=== PATIENT | female | born 1950 | race Caucasian/White ===

== ENCOUNTER 2021-10-27 13:25 | Outpatient (CLI) | payer OTHER, SELFPAY ==
[2021-10-27 19:38] LABS: Alanine Aminotransferase 36 U/L (6-35); Albumin Level 3.9 g/dL (3.5-5.1); Alkaline Phosphatase 85 U/L (38-126); Anion Gap 10 mmol/L (8-16); Aspartate Amino Transferase 43 U/L (14-36); Bilirubin,Total 0.8 mg/dL (0.2-1.3); Blood Urea Nitrogen 16 mg/dL (7-17); Calcium 9.6 mg/dL (8.4-10.2); Carbon Dioxide 30 mmol/L (22-30); Chloride 99 mmol/L (98-107); Cholesterol 190 mg/dL (0-200); Estimated Glomerular Filt Rate > 60; Glucose 188 mg/dL (65-110); HDL Direct 24 mg/dL; Potassium 4.2 mmol/L (3.4-5.0); Sodium 139 mmol/L (137-145); Triglycerides 501 mg/dL (<150)
[2021-10-27 19:49] LABS: LDL Cholesterol Direct 107 mg/dL
[2021-10-27 19:51] LABS: Basophils Absolute Auto 0.1 K/mm3 (0.0-0.1); Basophils Percent Auto 0.8 % (0.2-1.2); Eosinophils Absolute Auto 0.4 K/mm3 (0-0.3); Eosinophils Percent Auto 4.1 % (0-4.4); Hematocrit 48.3 % (37.0-47.0); Hemoglobin 16.3 g/dL (12.0-15.0); Immature Granulocyte Absolute 0.03 K/mm3 (0.00-0.031); Immature Granulocyte Percent A 0.4 % (0-0.5); Lymphocytes Percent Auto 23.4 % (18.3-44.2); Mean Corpuscular HGB Conc 33.7 g/dl (32-36); Mean Corpuscular Hemoglobin 30.9 pg (26-34); Mean Corpuscular Volume 91.5 fl (80-100); Mean Platelet Volume 9.7 fl (7.4-10.4); Monocytes Absolute Auto 0.8 K/mm3 (0.1-0.6); Monocytes Percent Auto 9.1 % (2.6-8.5); Neutrophils Absolute Auto 5.3 K/mm3 (1.3-6.7); Neutrophils Percent Auto 62.2 % (45.5-73.1); Platelet Count Result 282 k/mm3 (150-375); Red Blood Count 5.28 M/mm3 (4.2-5.4); Red Cell Distribution Width 13.2 % (11.5-14.5); White Blood Count 8.6 K/mm3 (4.5-10.0)
[2021-10-27 20:41] LABS: Creatinine Urine 67.1 mg/dL
[2021-10-27 20:43] LABS: MALB Creatinine Ratio 55.3 mg/g (0-30); Microalbumin Urine Random 37.1 mg/L (0-16.7)
[2021-10-27 21:07] LABS: Hemoglobin A1C 7.3 % (<5.7)
== END 2021-10-27 13:26 | disposition home or self-care (01) ==
LOC: ANHGOSHLAB 13:29
PROVIDERS: PCP Family Medicine; Visit Provider Family Medicine
DX: E11.9 Type 2 diabetes mellitus without complications (principal); E78.2 Mixed hyperlipidemia
CPT/HCPCS: 36415; 80053; 80061; 82043; 83036; 84443; 85025

== ENCOUNTER 2022-04-24 08:06 | Outpatient (CLI) | payer OTHER, SELFPAY ==
[2022-04-24 20:09] LABS: Alanine Aminotransferase 23 U/L (6-35); Albumin Level 3.9 g/dL (3.5-5.1); Alkaline Phosphatase 67 U/L (38-126); Anion Gap 5 mmol/L (8-16); Aspartate Amino Transferase 33 U/L (14-36); Bilirubin,Total 1.1 mg/dL (0.2-1.3); Blood Urea Nitrogen 20 mg/dL (7-17); Calcium 8.8 mg/dL (8.4-10.2); Carbon Dioxide 31 mmol/L (22-30); Chloride 102 mmol/L (98-107); Cholesterol 140 mg/dL (0-200); Estimated Glomerular Filt Rate > 60; Glucose 65 mg/dL (65-110); HDL Direct 32 mg/dL; Potassium 4.1 mmol/L (3.4-5.0); Sodium 138 mmol/L (137-145); Triglycerides 167 mg/dL (<150)
[2022-04-24 20:18] LABS: Creatinine Urine 76.5 mg/dL
[2022-04-24 20:21] LABS: LDL Cholesterol Direct 75 mg/dL
[2022-04-24 20:27] LABS: MALB Creatinine Ratio 11.5 mg/g (0-30); Microalbumin Urine Random 8.8 mg/L (0-16.7)
[2022-04-24 20:44] LABS: Hemoglobin A1C 5.3 % (<5.7)
== END 2022-04-24 08:07 | disposition home or self-care (01) ==
LOC: ANHGOSHLAB 08:07
PROVIDERS: PCP Family Medicine; Visit Provider Family Medicine
DX: E11.9 Type 2 diabetes mellitus without complications (principal)
CPT/HCPCS: 36415; 80053; 80061; 82043; 82607; 83036

== ENCOUNTER 2022-11-24 08:07 | Outpatient (CLI) | payer OTHER, SELFPAY ==
[2022-11-24 19:55] LABS: Alanine Aminotransferase 26 U/L (6-35); Albumin Level 3.7 g/dL (3.5-5.1); Alkaline Phosphatase 52 U/L (38-126); Anion Gap 6 mmol/L (8-16); Aspartate Amino Transferase 28 U/L (14-36); Bilirubin,Total 1.2 mg/dL (0.2-1.3); Blood Urea Nitrogen 12 mg/dL (7-17); Carbon Dioxide 32 mmol/L (22-30); Chloride 101 mmol/L (98-107); Cholesterol 138 mg/dL (0-200); Estimated Glomerular Filt Rate > 60; Glucose 100 mg/dL (65-110); HDL Direct 29 mg/dL; Sodium 139 mmol/L (137-145); Triglycerides 251 mg/dL (<150)
[2022-11-24 20:06] LABS: LDL Cholesterol Direct 72 mg/dL
[2022-11-24 20:27] LABS: Creatinine Urine 74.2 mg/dL
[2022-11-24 20:31] LABS: Hemoglobin A1C 5.9 % (<5.7)
[2022-11-24 20:57] LABS: Hepatitis C Virus Antibody Negative (Negative)
== END 2022-11-24 08:08 | disposition home or self-care (01) ==
LOC: ANHGOSHLAB 08:10
PROVIDERS: PCP Family Medicine; Visit Provider Family Medicine
DX: E11.9 Type 2 diabetes mellitus without complications (principal); Z11.59 Encounter for screening for other viral diseases
CPT/HCPCS: 36415; 80053; 80061; 82043; 82607; 83036; 86803

== ENCOUNTER 2023-07-13 08:14 | Outpatient (CLI) | payer OTHER, SELFPAY ==
[2023-07-13 14:15] LABS: Basophils Absolute Auto 0.1 K/mm3 (0.0-0.1); Basophils Percent Auto 0.6 % (0.2-1.2); Eosinophils Absolute Auto 0.3 K/mm3 (0-0.3); Eosinophils Percent Auto 3.9 % (0-4.4); Hematocrit 47.1 % (37.0-47.0); Hemoglobin 15.4 g/dL (12.0-15.0); Immature Granulocyte Absolute 0.04 K/mm3 (0.00-0.031); Immature Granulocyte Percent A 0.5 % (0-0.5); Lymphocytes Absolute Auto 1.71 K/mm3 (0.9-3.2); Mean Corpuscular HGB Conc 32.7 g/dl (32-36); Mean Corpuscular Hemoglobin 31.6 pg (26-34); Mean Corpuscular Volume 96.7 fl (80-100); Mean Platelet Volume 9.4 fl (7.4-10.4); Monocytes Absolute Auto 0.7 K/mm3 (0.1-0.6); Monocytes Percent Auto 8.3 % (2.6-8.5); Neutrophils Percent Auto 64.7 % (45.5-73.1); Platelet Count Result 272 k/mm3 (150-375); Red Blood Count 4.87 M/mm3 (4.2-5.4); Red Cell Distribution Width 12.9 % (11.5-14.5); White Blood Count 7.8 K/mm3 (4.5-10.0)
[2023-07-13 15:46] LABS: LDL Cholesterol Direct 83 mg/dL
[2023-07-13 15:54] LABS: Alanine Aminotransferase 21 U/L (6-35); Albumin Level 4.1 g/dL (3.5-5.1); Alkaline Phosphatase 59 U/L (38-126); Anion Gap 5 mmol/L (4-12); Aspartate Amino Transferase 47 U/L (14-36); Blood Urea Nitrogen 21 mg/dL (7-17); Calcium 9.5 mg/dL (8.4-10.2); Carbon Dioxide 31 mmol/L (22-30); Chloride 104 mmol/L (98-107); Cholesterol 147 mg/dL (0-200); Estimated Glomerular Filt Rate > 60; Glucose 89 mg/dL (65-110); HDL Direct 35 mg/dL; Potassium 4.5 mmol/L (3.4-5.0); Sodium 140 mmol/L (137-145); Triglycerides 238 mg/dL (<150)
[2023-07-13 16:28] LABS: Hemoglobin A1C 5.6 % (<5.7)
[2023-07-13 16:30] LABS: MALB Creatinine Ratio 10.3 mg/g (0-30); Microalbumin Urine Random 8.2 mg/L (0-16.7)
== END 2023-07-13 08:15 | disposition home or self-care (01) ==
LOC: ANHGOSHLAB 08:15
PROVIDERS: PCP Family Medicine; Visit Provider Family Medicine
DX: I10 Essential (primary) hypertension (principal); E78.2 Mixed hyperlipidemia; E66.9 Obesity, unspecified; E53.8 Deficiency of other specified B group vitamins; E11.9 Type 2 diabetes mellitus without complications; Z79.899 Other long term (current) drug therapy
CPT/HCPCS: 36415; 80053; 80061; 82043; 82607; 83036; 84443; 85025

== ENCOUNTER 2023-12-14 07:53 | Outpatient (CLI) | payer OTHER, SELFPAY ==
[2023-12-14 14:47] LABS: Alanine Aminotransferase 36 U/L (6-35); Albumin Level 3.9 g/dL (3.5-5.1); Alkaline Phosphatase 44 U/L (38-126); Anion Gap 10 mmol/L (4-12); Aspartate Amino Transferase 44 U/L (14-36); Bilirubin,Total 1.8 mg/dL (0.2-1.3); Blood Urea Nitrogen 31 mg/dL (7-17); Calcium 9.3 mg/dL (8.4-10.2); Carbon Dioxide 28 mmol/L (22-30); Chloride 100 mmol/L (98-107); Cholesterol 112 mg/dL (0-200); Estimated Glomerular Filt Rate > 60; Glucose 73 mg/dL (65-110); HDL Direct 34 mg/dL; Potassium 3.8 mmol/L (3.4-5.0); Sodium 138 mmol/L (137-145); Triglycerides 104 mg/dL (<150)
[2023-12-14 15:08] LABS: Microalbumin Urine Random 19.7 mg/L (0-16.7)
[2023-12-14 15:09] LABS: LDL Cholesterol Direct 48 mg/dL
[2023-12-14 15:12] LABS: Creatinine Urine 67.6 mg/dL; MALB Creatinine Ratio 29.1 mg/g (0-30)
[2023-12-14 16:21] LABS: Hemoglobin A1C 5.1 % (<5.7)
== END 2023-12-14 07:54 | disposition home or self-care (01) ==
LOC: ANHGOSHLAB 07:54
PROVIDERS: PCP Family Medicine; Visit Provider Family Medicine
DX: E11.40 Type 2 diabetes mellitus with diabetic neuropathy, unspecified (principal)
CPT/HCPCS: 36415; 80053; 80061; 82043; 82607; 83036; J1100; J2003; J2405; J2704

== ENCOUNTER 2024-05-23 07:54 | Outpatient (CLI) | payer OTHER, SELFPAY ==
--- OUTSIDE RECORDS SUMMARY | 2024-05-23 07:58 | XMS_ITS | Referral Summary ---
Author Organization [facility] Address [address] [place] [address] Care Team Providers Care Leather Production Machine Operator Name Role Phone Winnie Davey MD Primary Care Provider + Encounters Date Type Department Care Team Description 03/24/2024 8:30 AM KEYBOARD OPERATOR Office Visit [facility] [address] [place] [address] Yoselin Payan MD PhD Herpes zoster keratoconjunctivitis (Primary Dx) 03/13/2024 Telephone [facility] [address] [address] Shanda Akhtar from Last 3 Months Allergies Active Allergy Reactions Criticality Noted Date Comments Penicillins Rash Medium Medications metFORMIN XR (GLUCOPHAGE XR) 500 mg 24 hr tabletIndicatio ns:type 2 diabetes mellitus Take 2 tablets (1,000 mg total) by mouth 2 (two) times a day 3 Active telmisartan-hyd rochlorothiazid (MICARDIS HCT) 80-12.5 mg per tabletIndicatio ns:hypertension Take 1 tablet by mouth every morning 3 Active atorvastatin (LIPITOR) 10 mg tabletIndicatio ns:hyperlipidem ia Take 1 tablet (10 mg total) by mouth nightly 3 Active cholecalciferol , vitamin D3, (VITAMIN D3 ORAL) Take 1 capsule by mouth every morning Active cyanocobalamin (Vitamin B-12) 1,000 mcg tabletIndicatio ns:Prevention of Vitamin B12 Deficiency Take 1 tablet (1,000 mcg total) by mouth daily Active azithromycin (ZITHROMAX) 250 mg tablet TAKE 2 TABLETS BY MOUTH ON DAY 1, AND THEN TAKE 1 TABLET BY MOUTH ONCE A DAY ON DAY 2 THROUGH DAY 5 3 Active acyclovir (ZOVIRAX) 400 mg tablet Take 1 tablet (400 mg total) by mouth 3 (three) times a day 270 tablet 3 5 Active loteprednol (LOTEMAX) 0.5 % ophthalmic suspension Administer 1 drop into the right eye daily 15 mL 3 5 Active Active Problems Problem Noted Date Diagnosed Date Unspecified cataract 12/27/2022 Age-related nuclear cataract of both eyes 2018 Assessment & Plan (07/12/2018 3:09 PM CDT): Not visually significant, observe for now. Hx of HSV (herpes simplex virus) keratitis 07/12 Assessment & Plan (07/12/2018 3:11 PM CDT): Hx HSV keratitis OD with residual scar. Vision and corneas stable, IOP excellent Pt plans for annual diabetic DFE with optom closer to home. 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 Vision and corneas stable, IOP excellent However, there is an increase of stromal thinning and peripheral opacity Pt plans for annual diabetic DFE with optom closer to home. CPM: Lotemax Qd OD, Acyclovir 400 mg Qd-Bid po (take more for flareup) RTC 1 years, sooner prn Social History Tobacco Use Types Packs/Day Years Used Date Smoking Tobacco: Never Smokeless Tobacco: Never AUDIT-C Answer Date Recorded Q1: How often do you have a drink containing alcohol? Never 01/31/2023 Q2: How many drinks containi ng alcohol do you have on a typical day when you are drinking? Patient does not drink Q3: How often do you have si x or more drinks on one occasion? Never 01/31/2023 Personal Safety Answer Date Recorded Have you ever been in or are you currently in a harmful physical or emotional relationship or is someone making you feel afraid or unsafe? Denies 01/31/2023 Comments No Sex and Gender Information Value Date Recorded Sex Assigned at Not on file Legal Sex Female 2:45 AM KEYBOARD OPERATOR Gender Identity Not on file Sexual Orientation Not on file Last Filed Vital Signs Vital Sign Reading Time Taken Comments Blood Pressure 110/71 01/31/2023 4:15 PM KEYBOARD OPERATOR Pulse 67 01/31/2023 4:15 PM KEYBOARD OPERATOR Temperature 36.5 C (97.7 F) 01/31/2023 3:35 PM KEYBOARD OPERATOR Respiratory Rate 16 01/31/2023 4:15 PM KEYBOARD OPERATOR Oxygen Saturation 92% 01/31/2023 4:15 PM KEYBOARD OPERATOR Inhaled Oxygen Concentration - - Weight 79.4 kg (175 lb) 01/31/2023 1:20 PM KEYBOARD OPERATOR Height 152.4 cm (5') 01/31/2023 1:20 PM KEYBOARD OPERATOR Body Mass Index 34.18 01/31/2023 1:20 PM KEYBOARD OPERATOR Plan of Treatment Not on file Medical Devices Implanted Type Area Fire Control Assistant Device Identifier Shelf Expiration Date Model / Serial / Lot [employer] Lens Iol Tecnis Smplcty 1-Pc Clr [place] 23.0 Diopter [id number] - [id number] - [id number] Implanted:Qty: 1 on 01/31/2023 by Yoselin Payan MD PhD at [facility] Lens Right: Eye [employer] [id number] 09/29/2025 [id number] / 0 Insurance [facility] [id number] [facility] [id number] Care Teams Leather Production Machine Operator Relationship Specialty Start Date End Date Winnie Davey MD PCP - General Family Medicine 07/24/22
--- OUTSIDE RECORDS SUMMARY | 2024-05-23 07:58 | XMS_ITS | Continuity of Care Document ---
Author Organization [facility] Address [address] [facility] [address] [place] [address] Phone Care Team Providers Care Senior Applications Developer Name Role Phone Sachin Bear Unavailable Unavailable Procedures Procedure Date Office/outpatient Visit, Est Office/outpatient Visit, Est Office/outpatient Visit, Est Office/outpatient Visit, Est Office/outpatient Visit, Est Miscellaneus Eye Exam Established Pt Office/outpatient Visit, Est Office/outpatient Visit, Est Eye Exam & Treatment Office/outpatient Visit, Est Office/outpatient Visit, Est Office/outpatient Visit, Est Eye Exam, New Patient Advance Directives Directive Yes / No Effective Date File Name No Information Encounters Encounter Description Practice Location Reason(s) For Visit Diagnoses Date Provider Providers Copied on Encounter Office/outpat ient Visit, Est [facility], [address], [place], [place], [id number], [place] tel:[phone] [facility] No Information 0 Marianela Stephenson. [address] [facility] [address], [address], [place]. tel:[phone] Referring Provider: Itz Pinedo MD [place], [address] [place] [address], [address]. tel:[phone] Office/outpat ient Visit, [facility], [address] [place] [address] [address], [place], [place], [id number], [place] tel:[phone] [facility] No Information Mar-1 0-201 0 Krishnasamy Sachin. [address] [facility] [address], [place], [facility], [place]. tel:[phone] Referring Provider: Itz Cardenas, [address] [place] [address], [facility]. tel:[phone] Office/outpat ient Visit, [facility], [address] [place] [address] [address], [place], [place], [id number], [place] tel:[phone] [facility] No Information Mar-0 5-201 0 Krishnasamy Sachin. [address] [facility] [address], [place], [facility], [place]. tel:[phone] Referring Provider: Itz Cardenas, [address] [place], [place], [facility]. tel:[phone] Office/outpat ient Visit, [facility], [address] [place] [address] [address], [place], [place], [id number], [place] tel:[phone] [facility] No Information Feb-1 2-201 0 Krishnasamy Sachin. [address] [facility] [address], [place], [facility], [place]. tel:[phone] Referring Provider: Itz Cardenas, [address] [place], [address]. tel:[phone] Office/outpat ient Visit, [facility], [address] [place] [address] [address], [place], [place], [id number], [place] tel:[phone] [facility] No Information Feb-0 5-201 0 Krishnasamy Sachin. [address] [facility] [address], [place], [place], [facility], . tel:[phone] Referring Provider: Itz Cardenas, [address] [place], [address]. tel:[phone] [facility] Eye [facility], [address], [place], [place], [id number], [place] tel:[phone] [facility] No Information -201 0 Jeter Gladys. [address], [place], [facility], [place]. tel:[phone] Referring Provider: Itz Cardenas, [address] [place], [address]. tel:[phone] [facility] Eye [facility], [address], [place], [place], [id number], [place] tel:[phone] [facility] No Information 0 Steffany Salasn. [address] [facility] [address], [place], [facility], [place]. tel:[phone] Referring Provider: Itz Cardenas, [address] [place], [address]. tel:[phone] Office/outpat ient Visit, Est [facility] Eye [facility], [address], [place], [place], [id number], [place] tel:[phone] [facility] No Information 2-201 0 Steffany Gladys. [address], [place], [facility], [place]. tel:[phone] Referring Provider: Itz Cardenas, [address] [place], [address]. tel:[phone] Office/outpat ient Visit, Est [facility] Eye [facility], [address], [place], [place], [id number], [place] tel:[phone] [facility] No Information 5-200 9 Jeter Gladys. [address], [place], [facility], . tel:[phone] Referring Provider: Itz Pinedo MD [place], [address] [place] [address], [facility]. tel:[phone] [facility] Eye [facility], [address] [place] [address] [address], [place], [place], [id number], tel:[phone] [facility] No Information 1-200 9 Jeter Gladys. [address], [place], [facility], [place]. tel:[phone] Referring Provider: Itz Pinedo MD [place], [address] [place] [address], [facility]. tel:[phone] Office/outpat ient Visit, [facility], [address], [place], [place], [id number], [place] tel:[phone] [facility] No Information 200 9 Jeter Gladys. [address], [place], [facility], [place]. tel:[phone] Referring Provider: Itz Pinedo MD [place], [address] [place] [address], [facility]. tel:[phone] Office/outpat ient Visit, [facility] Eye [facility], [address] [place] [address] [address], [place], [place], [id number], [place] tel:[phone] [facility] No Information 0200 9 Jeter Gladys. [address], [place], [facility], [place]. tel:[phone] Referring Provider: Itz Cardenas, [address] [place] [address], [facility]. tel:[phone] Office/outpat ient Visit, [facility] Eye [facility], [address] [place] [address] [address], [place], [place], [id number], tel:[phone] [facility] No Information 200 9 Steffany Graham. [address] [facility] [address] , [address], [place], [address], . tel:[phone] Referring Provider: Itz Cardenas, [address] [place], [address]. tel:[phone] [facility], [address] [facility] [address], [place], [place], [id number], tel:[phone] [facility] No Information 9 Steffany Graham. [address] [facility] , [address], [place], [address], . tel:[phone] Referring Provider: Itz Cardenas, [address] [place], [address]. tel:[phone] Family History Family Member Type Diagnosis Age At Onset No Information Payers Payer name Insurance type Covered democrat ID Authoriza tion(s) No Information Social History Type Description Quantity Date Captured Comments Sex Female Smoking Status No Information Chief Complaint And Reason For Visit No Information Reason For Referral Reason For Referral No Information History Of Present Illness Encounter Date Complaint History Of Prese nt Illness No Information Functional Status Date Functional Assessmen t No Information Instructions Date Instruction Additional Infor mation No Information Assessments Type Assessment Date No Information Patient Care Teams Name Effective Dates (start - stop) Status Members No Information
--- OUTSIDE RECORDS SUMMARY | 2024-05-23 07:58 | XMS_ITS | Clinical Summary ---
Author Organization [facility] Address [address] [place] [address] Care Team Providers Care Nurse Care Manager Name Role Phone Winnie Davey MD Primary Care Provider + Allergies Active Allergy Reactions Criticality Noted Date [...] flareup) R/B/A of possible flare-up of keratopathy forwarsamir Calderon MD Assessment & Plan (07/24/2022 9:54 [...] keratitis OD n 2008 with residual scar. Vision and corneas stable, IOP excellent However, there is an increase of stromal thinning and peripheral opacity Pt plans for annual diabetic DFE with optom closer to home. CPM: Lotemax Qd OD, Acyclovir 400 mg Qd-Bid po (take more for flareup) RTC 1 years, sooner prn Encounters Date Type Department Care Team Description 03/24/2024 8:30 AM SCENIC ARTS SUPERVISOR Office Visit [facility] Ophthalmology [address] [address] Yoselin Payan MD PhD Herpes zoster keratoconjunctivitis (Primary Dx) 03/13/2024 Telephone [facility] Op[facility]mology [address] [address] Shanda Akhtar from Last 3 Months Surgical History Surgery Date Site/Laterality Comments TUBAL LIGATION 1970s Medical History Medical History Date Comments Personal history of other en docrine, nutritional and metabolic disease History of diabetes mellitus - (Added by TW Conv) Nuclear sclerotic cataract, bilateral OD>OS Herpes simplex virus (HSV) s tromal keratitis of right eye Follows with Dr. 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, bilateral Hypertension Family History Medical History Relation Name Comments Anesthesia problems Neg Hx Malig Hypertension Neg Hx Malig Hyperthermia Neg Hx Pseudochol deficiency Neg Hx Social History Tobacco Use Types Packs/Day Years [...] on file Legal Sex Female 2:45 AM SCENIC ARTS SUPERVISOR Gender Identity Not on file Sexual Orientation Not on file Obstetrics History Last Filed Vital Signs Vital Sign Reading Time Taken Comments Blood Pressure 110/71 01/31/2023 4:15 PM SCENIC ARTS SUPERVISOR Pulse 67 01/31/2023 4:15 PM SCENIC ARTS SUPERVISOR Temperature 36.5 C (97.7 F) 01/31/2023 3:35 PM SCENIC ARTS SUPERVISOR Respiratory Rate 16 01/31/2023 4:15 PM SCENIC ARTS SUPERVISOR Oxygen Saturation 92% 01/31/2023 4:15 PM SCENIC ARTS SUPERVISOR Inhaled Oxygen Concentration - - Weight 79.4 kg (175 lb) 01/31/2023 1:20 PM SCENIC ARTS SUPERVISOR Height 152.4 cm (5') 01/31/2023 1:20 PM SCENIC ARTS SUPERVISOR Body Mass Index 34.18 01/31/2023 1:20 PM SCENIC ARTS SUPERVISOR Plan of Treatment Health Maintenance Due Date Last Done Comments Breast Cancer Screening-Mammogram 1952 Colon Cancer Screening-Colonoscopy 1950 Depression Screening 1952 Hepatitis C Screening 1952 Osteoporosis Screening-Bone Density Scan 1952 Hepatitis B Screening 1970 Well Visit 65+ 2017 Zoster Vaccine (2 of 2) 07/15/2022 05/20/2022 Covid-19 Vaccine (6 - 2023-2 5 season) 2023 11/29/2021, 05/28/2021, 11/11/2020, Additional history exists Influenza Vaccine (#1) 2023 11/01/2021, 2020 Fall Risk Assessment 02/01/2024 01/31/2023 DTaP/Tdap/Td Vaccine (2 - Td or Tdap) 05/20/2032 05/20/2022 Pneumococcal vaccine 65+ Completed 11/23/2021, 08/2020 Medical Devices Implanted Type Area Dispatch Machine Runner Device Identifier Shelf Expiration Date Model / Serial / Lot [employer] Lens Iol Tecnis Smplcty 1-Pc Clr [place] 23.0 Diopter [id number] - [id number] - [id number] Implanted:Qty: 1 on 01/31/2023 by Yoselin Payan MD PhD at [facility] Lens Right: Eye [employer] [id number] 09/29/2025 [id number] / [id number] / 0 Insurance [facility] [id number] [facility] [id number] Care Teams Nurse Care Manager Relationship Specialty Start Date End Date Winnie Davey MD PCP - General Family Medicine 07/24/22
--- OUTSIDE RECORDS SUMMARY | 2024-05-23 07:58 | XMS_ITS | Encounter Summary ---
Author Organization [facility] Address [address] [place] [address] Phone Care Team Providers Care Property Underwriter Name Role Phone Winnie Davey MD Primary Care Provider + Reason for Referral * Diagnostic Imaging (Routine) - Closed Specialty Diagnoses / Procedures Referred By Contsophie t Referred To Contact Diagnoses Herpes zoster keratoconjunctivitis Procedures IOL Biometry - OU - Both Eyes Yoselin Payan MD PhD [address] [place] [address] Phone: tel: fax: [facility] (All Locations) Referral ID Status Reason Start Date Expiration Date Visits Re quested Visits Authorized [id number] Closed 12/18/2022 01/17/2024 1 1 F OPERATOR Encounter Details Date Type Department Care Team (Latest Contact Info) Description 12/18/2022 Orders Only [facility] Ophthalmology [address] [facility] 6th Floor, [address] [facility] [place] [address] Yoselin Payan MD PhD [address] [place] [address] Herpes zoster keratoconjunctivitis (Primary Dx) Social History Tobacco Use Types Packs/Day Years Used Date Smoking Tobacco: Never Comments Unknown Sex and Gender Information Value Date Recorded Sex Assigned at Not on file Legal Sex Female 2:45 AM WHARF OPERATOR Gender Identity Not on file Sexual Orientation Not on file documented as of this encounter Plan of Treatment Scheduled Orders Name Type Priority Associated Diagnoses Orde r Schedule IOL Biometry - OU - Both Eyes Ophthalmology Routine Herpes zoster keratoconjunctivitis Ordered: 12/18/2022 documented as of this encounter Visit Diagnoses Diagnosis Herpes zoster keratoconjunctivitis- Primary documented in this encounter Care Teams Property Underwriter Relationship Specialty Start Date End Date Winnie Davey MD PCP - General Family Medicine 07/24/22 documented as of this encounter
[2024-05-23 18:28] LABS: Hemoglobin A1C 5.2 % (<5.7)
[2024-05-23 18:46] LABS: Creatinine Urine 46.5 mg/dL
[2024-05-23 18:47] LABS: Alanine Aminotransferase 19 U/L (6-35); Albumin Level 3.8 g/dL (3.5-5.1); Alkaline Phosphatase 63 U/L (38-126); Anion Gap 7 mmol/L (4-12); Aspartate Amino Transferase 23 U/L (14-36); Bilirubin,Total 1.5 mg/dL (0.2-1.3); Blood Urea Nitrogen 29 mg/dL (7-17); Calcium 9.3 mg/dL (8.4-10.2); Carbon Dioxide 32 mmol/L (22-30); Chloride 100 mmol/L (98-107); Cholesterol 138 mg/dL (0-200); Estimated Glomerular Filt Rate > 60; Glucose 75 mg/dL (65-110); HDL Direct 38 mg/dL; Sodium 139 mmol/L (137-145); Triglycerides 111 mg/dL (<150)
[2024-05-23 18:58] LABS: LDL Cholesterol Direct 76 mg/dL
[2024-05-23 19:00] LABS: MALB Creatinine Ratio 26.7 mg/g (0-30); Microalbumin Urine Random 12.4 mg/L (0-16.7)
== END 2024-05-23 07:55 | disposition home or self-care (01) ==
LOC: ANHGOSHLAB 07:56
PROVIDERS: PCP Family Medicine; Visit Provider Family Medicine
DX: E11.40 Type 2 diabetes mellitus with diabetic neuropathy, unspecified (principal)
CPT/HCPCS: 36415; 80053; 80061; 82043; 82607; 83036

== ENCOUNTER 2024-11-21 07:50 | Outpatient (CLI) | payer OTHER, SELFPAY ==
--- OUTSIDE RECORDS SUMMARY | 2024-11-21 07:54 | XMS_ITS | Encounter Summary ---
Author Organization [facility] Address [address] [place] [address] Phone Care Team Providers Care Casino Floor Person Name Role Phone Winnie aDvey MD Primary Care Provider + Reason for Referral * Diagnostic Imaging (Routine) - Closed Specialty Diagnoses / Procedures Referred By Contsophie t Referred To Contact Diagnoses Herpes zoster keratoconjunctivitis Procedures IOL Biometry - OU - Both Eyes Yoselin Payan MD PhD [address] [place] [address] Phone: tel: fax: [facility] (All Locations) Referral ID Status Reason Start Date Expiration Date Visits Re quested Visits Authorized [id number] Closed 12/18/2022 01/17/2024 1 1 GENCY ROOM ORDERLY Encounter Details Date Type Department Care Team (Latest Contact Info) Description 12/18/2022 Orders Only [facility] Medicine Ophthalmology [address] [facility] 6th Floor, [address] [facility] [place] [address] Yoselin Payan MD PhD [address] [place] [address] Herpes zoster keratoconjunctivitis (Primary Dx) Social History Tobacco Use Types Packs/Day Years Used Date Smoking Tobacco: Never Comments Unknown Sex and Gender Information Value Date Recorded Sex Assigned at Not on file Legal Sex Female 2:45 AM EMERGENCY ROOM ORDERLY Gender Identity Not on file Sexual Orientation Not on file documented as of this encounter Plan of Treatment Scheduled Orders Name Type Priority Associated Diagnoses Orde r Schedule IOL Biometry - OU - Both Eyes Ophthalmology Routine Herpes zoster keratoconjunctivitis Ordered: 12/18/2022 documented as of this encounter Visit Diagnoses Diagnosis Herpes zoster keratoconjunctivitis- Primary documented in this encounter Care Teams Casino Floor Person Relationship Specialty Start Date End Date Winnie Davey MD PCP - General Family Medicine 07/24/22 documented as of this encounter
--- OUTSIDE RECORDS SUMMARY | 2024-11-21 07:54 | XMS_ITS | Clinical Summary ---
Author Organization [facility] Address [address] [place] [address] Care Team Providers Care Relocation Counselor Name Role Phone Winnie Davey MD Primary [...] for flareup) RTC 1 years, sooner prn Surgical History Surgery Date Site/Laterality Comments TUBAL LIGATION Medical History Medical History Date Comments Personal [...] on file Legal Sex Female 2:45 AM [employer] Gender Identity Not on file Sexual Orientation Not on file Obstetrics History Last Filed Vital Signs Vital Sign Reading Time Taken Comments Blood Pressure 110/71 01/31/2023 4:15 PM [employer] Pulse 67 01/31/2023 4:15 PM [employer] Temperature 36.5 C (97.7 F) 01/31/2023 3:35 PM [employer] RE[employer]ER Respiratory Rate 16 01/31/2023 4:15 PM SALT RE[employer] Oxygen Saturation 92% 01/31/2023 4:15 PM S[employer] RE[employer] Inhaled Oxygen Concentration - - Weight 79.4 kg (175 lb) 01/31/2023 1:20 PM [employer]ALT RE[employer] Height 152.4 cm (5') 01/31/2023 1:20 PM [employer] RE[employer] Body Mass Index 34.18 01/31/2023 1:20 PM SALT REFINER Plan of Treatment Health Maintenance Due Date Last Done Comments Breast Cancer Screening-Mammogram 1952 Colon Cancer Screening-Colonoscopy 1950 Depression Screening 1950 Hepatitis C Screening 1950 Osteoporosis Screening-Bone Density Scan 1952 Hepatitis B Screening 1970 Well Visit 65+ 2017 Zoster Vaccine (2 of 2) 07/15/2022 05/20/2022 Fall Risk Assessment 02/01/2024 01/31/2023 Covid-19 Vaccine (6 - 2024-2 6 season) 2024 11/29/2021, 05/28/2021, 11/11/2020, Additional history exists Influenza Vaccine (#1) 2024 11/01/2021, 2020 DTaP/Tdap/Td Vaccine (2 - Td or Tdap) 05/20/2032 05/20/2022 Pneumococcal vaccine 65+ Completed 11/23/2021, 08/2020 Medical Devices Implanted Type Area Reaming Machine Tender Device Identifier Shelf Expiration Date Model / Serial / Lot [employer] Lens Iol Tecnis Smplcty 1-Pc Clr [place] 23.0 Diopter [id number] - [id number] - [id number] Implanted:Qty: 1 on 01/31/2023 by Yoselin Payan MD PhD at [facility] Lens Right: Eye [employer] [id number] 09/29/2025 [id number] / 0 Insurance [facility] [id number] [facility] [id number] Care Teams Relocation Counselor Relationship Specialty Start Date End Date Winnie Davey MD PCP - General Family Medicine 07/24/22
[2024-11-21 19:18] LABS: Alanine Aminotransferase 24 U/L (6-35); Albumin Level 4.1 g/dL (3.5-5.1); Alkaline Phosphatase 57 U/L (38-126); Anion Gap 12 mmol/L (4-12); Aspartate Amino Transferase 25 U/L (14-36); Bilirubin,Total 1.2 mg/dL (0.2-1.3); Blood Urea Nitrogen 19 mg/dL (7-17); Calcium 9.4 mg/dL (8.4-10.2); Carbon Dioxide 26 mmol/L (22-30); Chloride 101 mmol/L (98-107); Cholesterol 160 mg/dL (0-200); Estimated Glomerular Filt Rate > 60; Glucose 78 mg/dL (65-110); HDL Direct 37 mg/dL; Potassium 4.2 mmol/L (3.4-5.0); Sodium 139 mmol/L (137-145); Total Protein 6.8 g/dL (6.3-8.2); Triglycerides 190 mg/dL (<150)
[2024-11-21 19:55] LABS: MALB Creatinine Ratio 114.0 mg/g (0-30)
[2024-11-21 20:03] LABS: Hemoglobin A1C 5.1 % (<5.7)
[2024-11-21 20:12] LABS: Vitamin B12 788.0 pg/mL (239-931)
== END 2024-11-21 07:51 | disposition home or self-care (01) ==
LOC: ANHGOSHLAB 07:51
PROVIDERS: PCP Family Medicine; Visit Provider Family Medicine
DX: E11.40 Type 2 diabetes mellitus with diabetic neuropathy, unspecified (principal)
CPT/HCPCS: 36415; 80053; 80061; 82043; 82607; 83036